=== PATIENT | female | born 1955 | race Caucasian/White ===

== ENCOUNTER 2019-07-22 12:06 | Inpatient (IN) ==
[2019-07-22 14:18] LABS: Basophils % 0.5 %; Hematocrit 38.6 % (35.3-44.9); Hemoglobin 11.3 g/dL (11.5-15.4); Lymphocytes % 15.3 %; Mean Corpuscular HGB Conc 29.3 g/dL (31.6-35.5); Mean Corpuscular Hemoglobin 30.6 pg (28.0-33.3); Mean Corpuscular Volume 104.6 fL (83.0-100.0); Mean Platelet Volume 9.7 fL (9.4-12.4); Monocytes # 0.6 K/mcL (0.0-1.3); Monocytes % 9.3 %; Neutrophils # 4.7 K/mcL (1.6-8.9); Platelet Count 166 K/mcL (140-400); Red Blood Count 3.69 M/mcL (3.82-4.97); Red Cell Distribution Width 14.6 % (11.5-14.5); Segmented Neutrophils % 72.9 %; White Blood Count 6.5 K/mcL (4.3-11.1)
[2019-07-22 14:31] LABS: Albumin 3.4 g/dL (3.5-5.7); Albumin/Globulin Ratio 1.2 (1.1-2.2); Bilirubin,Total 0.7 mg/dL (0.3-1.0); Calcium 8.5 mg/dL (8.6-10.3); Globulin 2.8 g/dL (2.4-3.5); Potassium 4.5 mEq/L (3.5-5.1); Total Protein 6.2 g/dL (6.4-8.9); Troponin I 0.03 ng/mL (< 0.04)
[2019-07-22] MEDS ORDERED: Furosemide 40 MG/4 ML VIAL IVP ONE (17:09)
[2019-07-22] MEDS ORDERED: Naloxone 0.4 MG/ML INJ IVP PRN (17:43)
[2019-07-22] MEDS ORDERED: Famotidine 20 MG TABLET PO SCH (18:00)
[2019-07-22] MEDS ORDERED: Nitroglycerin 0.4 MG TAB.SUBL SL PRN (18:00)
[2019-07-22] MEDS: carvediloL 6.25 MG TABLET PO SCH (19:37)
[2019-07-22] MEDS: *HR* Heparin 5,000 UNIT/ML VIAL SQ SCH (19:37)
[2019-07-22] MEDS: Insulin LISPRO 300 UNITS/3 ML VIAL SQ SCH (21:04)
[2019-07-22] MEDS: Insulin DETEMIR 100 UNIT/ML X5UNITS SQ SCH (21:14)
[2019-07-23] MEDS: *HR* Heparin 5,000 UNIT/ML VIAL SQ SCH ×2 (05:11→17:46)
[2019-07-23] MEDS: Acetaminophen 325 MG TABLET PO PRN ×2 (05:13→17:01)
[2019-07-23 05:52] LABS: Basophils % 0.5 %; Mean Platelet Volume 9.7 fL (9.4-12.4)
[2019-07-23 05:54] LABS: Hematocrit 37.7 % (35.3-44.9); Hemoglobin 10.9 g/dL (11.5-15.4); Immature Granulocytes % 1.3 % (0-4); Lymphocytes # 0.9 K/mcL (0.6-4.6); Lymphocytes % 13.9 %; Mean Corpuscular HGB Conc 28.9 g/dL (31.6-35.5); Mean Corpuscular Hemoglobin 29.8 pg (28.0-33.3); Monocytes # 0.7 K/mcL (0.0-1.3); Monocytes % 10.6 %; Platelet Count 165 K/mcL (140-400); Red Blood Count 3.66 M/mcL (3.82-4.97); Red Cell Distribution Width 14.6 % (11.5-14.5); Segmented Neutrophils % 73.7 %; White Blood Count 6.3 K/mcL (4.3-11.1)
[2019-07-23 06:01] LABS: Neutrophils # 4.6 K/mcL (1.6-8.9)
[2019-07-23 06:18] LABS: Calcium 8.4 mg/dL (8.6-10.3); Magnesium 2.3 mg/dL (1.6-2.6); Phosphorous 5.6 mg/dL (2.7-4.5); Potassium 5.6 mEq/L (3.5-5.1)
[2019-07-23 06:40] LABS: Platelet Estimate Normal (Normal)
[2019-07-23] MEDS ORDERED: Dextrose Gel 15 GM/37.5 ML TUBE PO PRN ×2 (07:06)
[2019-07-23] MEDS ORDERED: D5% in Water 1,000 ML IVC PRN (07:06)
[2019-07-23] MEDS ORDERED: *HR* Dextrose 50 % in Water (Syg) 50 ML SYRINGE IVP PRN (07:06)
[2019-07-23] MEDS: Insulin LISPRO 300 UNITS/3 ML VIAL SQ SCH ×4 (07:53→23:07)
[2019-07-23] MEDS: Aspirin Enteric Coated 81 MG Tablet PO SCH (07:59)
[2019-07-23] MEDS: carvediloL 6.25 MG TABLET PO SCH ×2 (07:59→17:01)
[2019-07-23] MEDS: Cholecalciferol (D-3) 1,000 UNIT (25MCG) TABLET PO SCH (07:59)
[2019-07-23] MEDS ORDERED: Insulin LISPRO 300 UNITS/3 ML VIAL SQ SCH (08:00)
[2019-07-23] MEDS ORDERED: Furosemide 40 MG/4 ML VIAL IVP ONE (12:11)
[2019-07-23] MEDS: Famotidine 20 MG TABLET PO SCH (17:01)
[2019-07-23] MEDS: Insulin DETEMIR 100 UNIT/ML X5UNITS SQ SCH (23:08)
[2019-07-24 06:08] LABS: Calcium 8.4 mg/dL (8.6-10.3); Potassium 5.4 mEq/L (3.5-5.1)
[2019-07-24] MEDS: *HR* Heparin 5,000 UNIT/ML VIAL SQ SCH ×2 (06:33→16:48)
[2019-07-24] MEDS: Insulin LISPRO 300 UNITS/3 ML VIAL SQ SCH ×3 (09:12→16:43)
[2019-07-24] MEDS: carvediloL 6.25 MG TABLET PO SCH ×2 (09:14→16:51)
[2019-07-24] MEDS: Aspirin Enteric Coated 81 MG Tablet PO SCH (09:14)
[2019-07-24] MEDS: Cholecalciferol (D-3) 1,000 UNIT (25MCG) TABLET PO SCH (09:14)
[2019-07-24] MEDS ORDERED: Albuterol 2.5 MG/3 ML NEBULIZER IH PRN (10:26)
[2019-07-24] MEDS ORDERED: Albumin 25% 25gram/100mL 25 GM/100 ML IV.SOLN IVPB ONE (11:28)
[2019-07-24] MEDS ORDERED: Furosemide 40 MG/4 ML VIAL IVP ONE (12:30)
[2019-07-24 13:11] LABS: Procalcitonin 0.18 ng/mL (0.00-0.15)
[2019-07-24] MEDS: Acetaminophen 325 MG TABLET PO PRN (16:47)
[2019-07-24] MEDS: Famotidine 20 MG TABLET PO SCH (16:47)
[2019-07-25] MEDS: Insulin LISPRO 300 UNITS/3 ML VIAL SQ SCH ×5 (00:12→22:27)
[2019-07-25] MEDS: GuaiFENesin/Dextromethorphan TABLET PO PRN (00:17)
[2019-07-25] MEDS: Insulin DETEMIR 100 UNIT/ML X5UNITS SQ SCH ×2 (00:17→22:31)
[2019-07-25] MEDS: *HR* Heparin 5,000 UNIT/ML VIAL SQ SCH ×2 (04:50→17:43)
[2019-07-25 05:21] LABS: Basophils % 0.5 %
[2019-07-25 05:22] LABS: Hematocrit 40.3 % (35.3-44.9); Hemoglobin 11.2 g/dL (11.5-15.4); Immature Granulocytes % 1.2 % (0-4); Lymphocytes # 0.9 K/mcL (0.6-4.6); Lymphocytes % 10.2 %; Mean Corpuscular HGB Conc 27.8 g/dL (31.6-35.5); Mean Corpuscular Hemoglobin 30.3 pg (28.0-33.3); Mean Corpuscular Volume 108.9 fL (83.0-100.0); Mean Platelet Volume 9.7 fL (9.4-12.4); Monocytes % 11.5 %; Neutrophils # 6.8 K/mcL (1.6-8.9); Platelet Count 131 K/mcL (140-400); Red Cell Distribution Width 14.6 % (11.5-14.5); Segmented Neutrophils % 76.6 %; White Blood Count 8.9 K/mcL (4.3-11.1)
[2019-07-25 05:34] LABS: Calcium 8.5 mg/dL (8.6-10.3); Potassium 5.2 mEq/L (3.5-5.1)
[2019-07-25 06:05] LABS: Hypochromasia Present (Not Present); Platelet Estimate Decreased (Normal)
[2019-07-25] MEDS: carvediloL 6.25 MG TABLET PO SCH ×2 (09:29→17:43)
[2019-07-25] MEDS: Acetaminophen 325 MG TABLET PO PRN ×2 (09:29→17:43)
[2019-07-25] MEDS: Aspirin Enteric Coated 81 MG Tablet PO SCH (09:29)
[2019-07-25] MEDS: Cholecalciferol (D-3) 1,000 UNIT (25MCG) TABLET PO SCH (09:29)
[2019-07-25] MEDS ORDERED: Albumin 25% 25gram/100mL 25 GM/100 ML IV.SOLN IVPB ONE (10:17)
[2019-07-25] MEDS ORDERED: Furosemide 40 MG/4 ML VIAL IVP ONE (10:17)
[2019-07-25] MEDS: Famotidine 20 MG TABLET PO SCH (17:43)
[2019-07-26 03:33] LABS: Hematocrit 36.4 % (35.3-44.9); Hemoglobin 10.5 g/dL (11.5-15.4); Mean Corpuscular HGB Conc 28.8 g/dL (31.6-35.5); Mean Corpuscular Hemoglobin 30.1 pg (28.0-33.3); Mean Corpuscular Volume 104.3 fL (83.0-100.0); Mean Platelet Volume 9.9 fL (9.4-12.4); Platelet Count 128 K/mcL (140-400); Red Blood Count 3.49 M/mcL (3.82-4.97); Red Cell Distribution Width 14.5 % (11.5-14.5); White Blood Count 8.2 K/mcL (4.3-11.1)
[2019-07-26 03:48] LABS: Calcium 8.7 mg/dL (8.6-10.3)
[2019-07-26] MEDS: *HR* Heparin 5,000 UNIT/ML VIAL SQ SCH ×2 (06:15→17:31)
[2019-07-26] MEDS: carvediloL 6.25 MG TABLET PO SCH ×2 (08:43→16:19)
[2019-07-26] MEDS: Insulin LISPRO 300 UNITS/3 ML VIAL SQ SCH ×4 (08:43→21:59)
[2019-07-26] MEDS: Cholecalciferol (D-3) 1,000 UNIT (25MCG) TABLET PO SCH (08:43)
[2019-07-26] MEDS: Aspirin Enteric Coated 81 MG Tablet PO SCH (08:44)
[2019-07-26] MEDS: Acetaminophen 325 MG TABLET PO PRN ×2 (08:52→22:00)
[2019-07-26] MEDS ORDERED: Albumin 25% 25gram/100mL 25 GM/100 ML IV.SOLN IVPB ONE (10:01)
[2019-07-26] MEDS ORDERED: Furosemide 40 MG/4 ML VIAL IVP ONE (10:01)
[2019-07-26] MEDS: Famotidine 20 MG TABLET PO SCH (16:19)
[2019-07-26] MEDS: GuaiFENesin/Dextromethorphan TABLET PO PRN (22:00)
[2019-07-26] MEDS: Insulin DETEMIR 100 UNIT/ML X5UNITS SQ SCH (22:00)
[2019-07-27] MEDS: *HR* Heparin 5,000 UNIT/ML VIAL SQ SCH ×2 (05:27→16:05)
[2019-07-27 06:05] LABS: Hematocrit 35.7 % (35.3-44.9); Hemoglobin 10.4 g/dL (11.5-15.4); Mean Corpuscular HGB Conc 29.1 g/dL (31.6-35.5); Mean Corpuscular Hemoglobin 30.1 pg (28.0-33.3); Mean Corpuscular Volume 103.5 fL (83.0-100.0); Mean Platelet Volume 10.1 fL (9.4-12.4); Platelet Count 124 K/mcL (140-400); Red Blood Count 3.45 M/mcL (3.82-4.97); Red Cell Distribution Width 14.4 % (11.5-14.5); White Blood Count 7.5 K/mcL (4.3-11.1)
[2019-07-27 06:42] LABS: Calcium 8.9 mg/dL (8.6-10.3); Potassium 5.1 mEq/L (3.5-5.1)
[2019-07-27 06:43] LABS: % Iron Saturation 18 % (15-50); Iron 33 mcg/dL (50-170); Transferrin 128 mg/dL (203-362)
[2019-07-27 06:56] LABS: Troponin I 0.03 ng/mL (< 0.04)
[2019-07-27] MEDS ORDERED: 0.9 % Sodium Chloride 250 ML IVC PRN ×2 (07:56→08:23)
[2019-07-27] MEDS ORDERED: 0.9 % Sodium Chloride 1,000 ML PRIME SCH (08:00)
[2019-07-27] MEDS: carvediloL 6.25 MG TABLET PO SCH ×2 (08:53→16:05)
[2019-07-27] MEDS: Insulin LISPRO 300 UNITS/3 ML VIAL SQ SCH ×4 (08:53→21:20)
[2019-07-27] MEDS: Aspirin Enteric Coated 81 MG Tablet PO SCH (08:54)
[2019-07-27] MEDS: Cholecalciferol (D-3) 1,000 UNIT (25MCG) TABLET PO SCH (08:54)
[2019-07-27 12:25] LABS: Hepatitis B Surface Antigen Nonreactive (Nonreactive)
[2019-07-27] MEDS: Famotidine 20 MG TABLET PO SCH (16:05)
[2019-07-27] MEDS: Insulin DETEMIR 100 UNIT/ML X5UNITS SQ SCH (21:20)
[2019-07-28] MEDS: Acetaminophen 325 MG TABLET PO PRN ×2 (00:45→11:50)
[2019-07-28 05:23] LABS: Calcium 8.7 mg/dL (8.6-10.3); Potassium 4.4 mEq/L (3.5-5.1)
[2019-07-28] MEDS: *HR* Heparin 5,000 UNIT/ML VIAL SQ SCH ×2 (05:57→16:20)
[2019-07-28] MEDS: Insulin LISPRO 300 UNITS/3 ML VIAL SQ SCH ×4 (07:46→20:04)
[2019-07-28] MEDS ORDERED: 0.9 % Sodium Chloride 250 ML IVC PRN (08:04)
[2019-07-28] MEDS: carvediloL 6.25 MG TABLET PO SCH ×2 (08:05→16:20)
[2019-07-28] MEDS: Benzonatate 100 MG CAPSULE PO PRN (11:45)
[2019-07-28] MEDS: Cholecalciferol (D-3) 1,000 UNIT (25MCG) TABLET PO SCH (15:27)
[2019-07-28] MEDS: Aspirin Enteric Coated 81 MG Tablet PO SCH (15:27)
[2019-07-28] MEDS: Famotidine 20 MG TABLET PO SCH (16:20)
[2019-07-28] MEDS: Insulin DETEMIR 100 UNIT/ML X5UNITS SQ SCH (20:05)
[2019-07-29 03:21] LABS: Hematocrit 35.2 % (35.3-44.9); Hemoglobin 10.2 g/dL (11.5-15.4); Mean Corpuscular Hemoglobin 30.3 pg (28.0-33.3); Mean Corpuscular Volume 104.5 fL (83.0-100.0); Mean Platelet Volume 9.8 fL (9.4-12.4); Platelet Count 120 K/mcL (140-400); Red Blood Count 3.37 M/mcL (3.82-4.97); Red Cell Distribution Width 14.4 % (11.5-14.5)
[2019-07-29 03:31] LABS: Calcium 8.9 mg/dL (8.6-10.3); Potassium 4.3 mEq/L (3.5-5.1)
[2019-07-29] MEDS: *HR* Heparin 5,000 UNIT/ML VIAL SQ SCH ×2 (05:07→18:17)
[2019-07-29] MEDS ORDERED: 0.9 % Sodium Chloride 250 ML IVC PRN (07:53)
[2019-07-29] MEDS: Aspirin Enteric Coated 81 MG Tablet PO SCH (08:45)
[2019-07-29] MEDS: Insulin LISPRO 300 UNITS/3 ML VIAL SQ SCH ×4 (08:46→20:27)
[2019-07-29] MEDS: Cholecalciferol (D-3) 1,000 UNIT (25MCG) TABLET PO SCH (08:46)
[2019-07-29] MEDS: carvediloL 6.25 MG TABLET PO SCH ×2 (08:46→16:04)
[2019-07-29] MEDS: Benzonatate 100 MG CAPSULE PO PRN ×2 (10:42→16:04)
[2019-07-29] MEDS: Acetaminophen 325 MG TABLET PO PRN (10:42)
[2019-07-29] MEDS: Famotidine 20 MG TABLET PO SCH (16:03)
[2019-07-29] MEDS: GuaiFENesin/Dextromethorphan TABLET PO PRN (16:04)
[2019-07-29] MEDS: Nystatin POWDER 30 GM BOTTLE TP SCH (20:27)
[2019-07-29] MEDS: Insulin DETEMIR 100 UNIT/ML X5UNITS SQ SCH (20:29)
[2019-07-30 05:07] LABS: Basophils % 0.4 %; Hematocrit 34.8 % (35.3-44.9); Hemoglobin 10.3 g/dL (11.5-15.4); Immature Granulocytes % 1.9 % (0-4); Lymphocytes # 0.9 K/mcL (0.6-4.6); Lymphocytes % 11.6 %; Mean Corpuscular HGB Conc 29.6 g/dL (31.6-35.5); Mean Corpuscular Hemoglobin 29.8 pg (28.0-33.3); Mean Corpuscular Volume 100.6 fL (83.0-100.0); Mean Platelet Volume 10.1 fL (9.4-12.4); Monocytes # 0.9 K/mcL (0.0-1.3); Monocytes % 12.4 %; Neutrophils # 5.5 K/mcL (1.6-8.9); Platelet Count 129 K/mcL (140-400); Red Blood Count 3.46 M/mcL (3.82-4.97); Red Cell Distribution Width 14.3 % (11.5-14.5); Segmented Neutrophils % 73.7 %; White Blood Count 7.5 K/mcL (4.3-11.1)
[2019-07-30] MEDS: *HR* Heparin 5,000 UNIT/ML VIAL SQ SCH ×2 (05:09→17:10)
[2019-07-30 05:23] LABS: Calcium 8.4 mg/dL (8.6-10.3); Potassium 4.2 mEq/L (3.5-5.1)
[2019-07-30] MEDS: Insulin LISPRO 300 UNITS/3 ML VIAL SQ SCH ×4 (07:57→20:21)
[2019-07-30] MEDS: Acetaminophen 325 MG TABLET PO PRN (08:39)
[2019-07-30] MEDS: carvediloL 6.25 MG TABLET PO SCH ×2 (08:42→17:09)
[2019-07-30] MEDS: Benzonatate 100 MG CAPSULE PO PRN (08:42)
[2019-07-30] MEDS: Cholecalciferol (D-3) 1,000 UNIT (25MCG) TABLET PO SCH (08:45)
[2019-07-30] MEDS: GuaiFENesin/Dextromethorphan TABLET PO PRN (08:45)
[2019-07-30] MEDS: Aspirin Enteric Coated 81 MG Tablet PO SCH (08:45)
[2019-07-30] MEDS: Nystatin POWDER 30 GM BOTTLE TP SCH ×2 (11:36→22:20)
[2019-07-30] MEDS: Famotidine 20 MG TABLET PO SCH (17:09)
[2019-07-30] MEDS: Insulin DETEMIR 100 UNIT/ML X5UNITS SQ SCH (20:21)
[2019-07-31 04:44] LABS: Calcium 8.6 mg/dL (8.6-10.3); Potassium 4.1 mEq/L (3.5-5.1)
[2019-07-31] MEDS: *HR* Heparin 5,000 UNIT/ML VIAL SQ SCH ×2 (05:39→16:55)
[2019-07-31] MEDS ORDERED: 0.9 % Sodium Chloride 250 ML IVC PRN (08:03)
[2019-07-31] MEDS: Benzonatate 100 MG CAPSULE PO PRN ×2 (11:00→16:52)
[2019-07-31] MEDS: carvediloL 6.25 MG TABLET PO SCH ×2 (11:00→16:51)
[2019-07-31] MEDS: Cholecalciferol (D-3) 1,000 UNIT (25MCG) TABLET PO SCH (11:00)
[2019-07-31] MEDS: Aspirin Enteric Coated 81 MG Tablet PO SCH (11:01)
[2019-07-31] MEDS: Nystatin POWDER 30 GM BOTTLE TP SCH ×2 (11:01→19:52)
[2019-07-31] MEDS: Insulin LISPRO 300 UNITS/3 ML VIAL SQ SCH ×4 (11:01→19:51)
[2019-07-31] MEDS ORDERED: *HR* Heparin 10,000 UNIT/10 ML VIAL IV PRN (12:43)
[2019-07-31] MEDS: Famotidine 20 MG TABLET PO SCH (16:51)
[2019-07-31] MEDS: Insulin DETEMIR 100 UNIT/ML X5UNITS SQ SCH (19:51)
[2019-07-31] MEDS: Acetaminophen 325 MG TABLET PO PRN (21:07)
[2019-08-01] MEDS: *HR* Heparin 5,000 UNIT/ML VIAL SQ SCH ×2 (05:48→17:13)
[2019-08-01 06:27] LABS: Calcium 8.4 mg/dL (8.6-10.3); Potassium 3.9 mEq/L (3.5-5.1)
[2019-08-01] MEDS: Insulin LISPRO 300 UNITS/3 ML VIAL SQ SCH ×4 (07:46→20:59)
[2019-08-01] MEDS: Cholecalciferol (D-3) 1,000 UNIT (25MCG) TABLET PO SCH (09:34)
[2019-08-01] MEDS: Benzonatate 100 MG CAPSULE PO PRN (09:34)
[2019-08-01] MEDS: carvediloL 6.25 MG TABLET PO SCH ×2 (09:34→17:12)
[2019-08-01] MEDS: Aspirin Enteric Coated 81 MG Tablet PO SCH (09:34)
[2019-08-01] MEDS: Nystatin POWDER 30 GM BOTTLE TP SCH ×2 (09:35→20:58)
[2019-08-01] MEDS: Famotidine 20 MG TABLET PO SCH (17:12)
[2019-08-01] MEDS: Insulin DETEMIR 100 UNIT/ML X5UNITS SQ SCH (20:59)
[2019-08-02] MEDS: *HR* Heparin 5,000 UNIT/ML VIAL SQ SCH ×2 (05:23→18:20)
[2019-08-02 08:10] LABS: Calcium 8.6 mg/dL (8.6-10.3)
[2019-08-02] MEDS: Aspirin Enteric Coated 81 MG Tablet PO SCH (08:49)
[2019-08-02] MEDS: Cholecalciferol (D-3) 1,000 UNIT (25MCG) TABLET PO SCH (08:49)
[2019-08-02] MEDS: carvediloL 6.25 MG TABLET PO SCH ×2 (08:49→18:20)
[2019-08-02] MEDS: Benzonatate 100 MG CAPSULE PO PRN (08:49)
[2019-08-02] MEDS: Nystatin POWDER 30 GM BOTTLE TP SCH ×2 (08:49→22:01)
[2019-08-02] MEDS: Insulin LISPRO 300 UNITS/3 ML VIAL SQ SCH ×3 (13:04→22:00)
[2019-08-02] MEDS: Famotidine 20 MG TABLET PO SCH (18:20)
[2019-08-02] MEDS: Insulin DETEMIR 100 UNIT/ML X5UNITS SQ SCH (22:09)
[2019-08-02] MEDS: Acetaminophen 325 MG TABLET PO PRN (23:39)
[2019-08-03 01:31] LABS: Hematocrit 34.2 % (35.3-44.9); Immature Granulocytes % 4.8 % (0-4)
[2019-08-03 01:32] LABS: Basophils # 0.1 K/mcL (0.0-0.2); Basophils % 0.8 %; Hemoglobin 10.2 g/dL (11.5-15.4); Lymphocytes % 14.5 %; Mean Corpuscular HGB Conc 29.8 g/dL (31.6-35.5); Mean Corpuscular Hemoglobin 29.9 pg (28.0-33.3); Mean Corpuscular Volume 100.3 fL (83.0-100.0); Mean Platelet Volume 9.8 fL (9.4-12.4); Monocytes # 0.8 K/mcL (0.0-1.3); Monocytes % 12.3 %; Neutrophils # 4.5 K/mcL (1.6-8.9); Platelet Count 156 K/mcL (140-400); Red Blood Count 3.41 M/mcL (3.82-4.97); Red Cell Distribution Width 14.4 % (11.5-14.5); Segmented Neutrophils % 67.6 %; White Blood Count 6.6 K/mcL (4.3-11.1)
[2019-08-03 01:52] LABS: Calcium 8.6 mg/dL (8.6-10.3); Potassium 4.1 mEq/L (3.5-5.1)
[2019-08-03 02:03] LABS: Hypochromasia Present (Not Present); Platelet Estimate Normal (Normal)
[2019-08-03] MEDS: *HR* Heparin 5,000 UNIT/ML VIAL SQ SCH ×2 (06:45→17:15)
[2019-08-03] MEDS: Insulin LISPRO 300 UNITS/3 ML VIAL SQ SCH ×4 (09:04→21:45)
[2019-08-03] MEDS: Cholecalciferol (D-3) 1,000 UNIT (25MCG) TABLET PO SCH (09:07)
[2019-08-03] MEDS: Aspirin Enteric Coated 81 MG Tablet PO SCH (09:07)
[2019-08-03] MEDS: Nystatin POWDER 30 GM BOTTLE TP SCH ×2 (09:07→21:49)
[2019-08-03] MEDS: carvediloL 6.25 MG TABLET PO SCH ×2 (09:15→17:15)
[2019-08-03] MEDS: Famotidine 20 MG TABLET PO SCH (17:15)
[2019-08-03] MEDS: Insulin DETEMIR 100 UNIT/ML X5UNITS SQ SCH (21:49)
[2019-08-04] MEDS: *HR* Heparin 5,000 UNIT/ML VIAL SQ SCH ×2 (06:14→16:44)
[2019-08-04 06:28] LABS: Red Cell Distribution Width 14.2 % (11.5-14.5)
[2019-08-04 06:29] LABS: Basophils # 0.1 K/mcL (0.0-0.2); Basophils % 0.5 %; Hematocrit 35.8 % (35.3-44.9); Hemoglobin 10.3 g/dL (11.5-15.4); Immature Granulocytes % 3.1 % (0-4); Lymphocytes # 0.9 K/mcL (0.6-4.6); Lymphocytes % 9.5 %; Mean Corpuscular HGB Conc 28.8 g/dL (31.6-35.5); Mean Corpuscular Hemoglobin 29.7 pg (28.0-33.3); Mean Corpuscular Volume 103.2 fL (83.0-100.0); Mean Platelet Volume 10.1 fL (9.4-12.4); Monocytes % 11.2 %; Platelet Count 174 K/mcL (140-400); Red Blood Count 3.47 M/mcL (3.82-4.97); Segmented Neutrophils % 75.7 %; White Blood Count 9.3 K/mcL (4.3-11.1)
[2019-08-04 06:43] LABS: Calcium 8.9 mg/dL (8.6-10.3); Potassium 4.3 mEq/L (3.5-5.1)
[2019-08-04 07:01] LABS: Hypochromasia Present (Not Present); Platelet Estimate Normal (Normal)
[2019-08-04] MEDS: Insulin LISPRO 300 UNITS/3 ML VIAL SQ SCH ×4 (08:04→20:58)
[2019-08-04] MEDS: Furosemide 40 MG TABLET PO SCH (09:19)
[2019-08-04] MEDS: carvediloL 6.25 MG TABLET PO SCH ×2 (09:19→16:43)
[2019-08-04] MEDS: Aspirin Enteric Coated 81 MG Tablet PO SCH (09:19)
[2019-08-04] MEDS: Cholecalciferol (D-3) 1,000 UNIT (25MCG) TABLET PO SCH (09:19)
[2019-08-04] MEDS: Nystatin POWDER 30 GM BOTTLE TP SCH ×2 (14:02→20:59)
[2019-08-04] MEDS: Famotidine 20 MG TABLET PO SCH (16:43)
[2019-08-04] MEDS: Insulin DETEMIR 100 UNIT/ML X5UNITS SQ SCH (20:58)
[2019-08-05 05:30] LABS: Basophils % 0.5 %; Hematocrit 35.5 % (35.3-44.9); Hemoglobin 10.4 g/dL (11.5-15.4); Immature Granulocytes % 3.6 % (0-4); Lymphocytes # 0.9 K/mcL (0.6-4.6); Lymphocytes % 10.7 %; Mean Corpuscular HGB Conc 29.3 g/dL (31.6-35.5); Mean Corpuscular Volume 102.3 fL (83.0-100.0); Mean Platelet Volume 9.8 fL (9.4-12.4); Monocytes % 12.1 %; Neutrophils # 6.3 K/mcL (1.6-8.9); Platelet Count 176 K/mcL (140-400); Red Blood Count 3.47 M/mcL (3.82-4.97); Red Cell Distribution Width 14.3 % (11.5-14.5); Segmented Neutrophils % 73.1 %; White Blood Count 8.5 K/mcL (4.3-11.1)
[2019-08-05 05:50] LABS: Calcium 9.2 mg/dL (8.6-10.3); Potassium 4.1 mEq/L (3.5-5.1)
[2019-08-05] MEDS: *HR* Heparin 5,000 UNIT/ML VIAL SQ SCH ×2 (06:43→17:05)
[2019-08-05] MEDS: Cholecalciferol (D-3) 1,000 UNIT (25MCG) TABLET PO SCH (09:36)
[2019-08-05] MEDS: Aspirin Enteric Coated 81 MG Tablet PO SCH (09:36)
[2019-08-05] MEDS: carvediloL 6.25 MG TABLET PO SCH ×2 (09:36→17:04)
[2019-08-05] MEDS: Furosemide 40 MG TABLET PO SCH (09:36)
[2019-08-05] MEDS: Nystatin POWDER 30 GM BOTTLE TP SCH ×2 (09:37→20:16)
[2019-08-05] MEDS: Insulin LISPRO 300 UNITS/3 ML VIAL SQ SCH ×4 (09:37→20:10)
[2019-08-05] MEDS: Benzonatate 100 MG CAPSULE PO PRN ×2 (09:42→20:21)
[2019-08-05 13:38] LABS: Total Volume 24 Hour,Urine 0.84 Liters (0.60-1.60)
[2019-08-05 13:56] LABS: Sodium, Urine 43.6 mEq/L
[2019-08-05] MEDS: Famotidine 20 MG TABLET PO SCH (17:05)
[2019-08-05] MEDS: Insulin DETEMIR 100 UNIT/ML X5UNITS SQ SCH (20:15)
[2019-08-06 04:00] LABS: Basophils % 0.6 %; Lymphocytes % 11.1 %; Red Cell Distribution Width 14.2 % (11.5-14.5)
[2019-08-06 04:02] LABS: Basophils # 0.1 K/mcL (0.0-0.2); Hematocrit 35.5 % (35.3-44.9); Hemoglobin 10.3 g/dL (11.5-15.4); Immature Granulocytes % 3.1 % (0-4); Lymphocytes # 0.9 K/mcL (0.6-4.6); Mean Corpuscular Hemoglobin 29.9 pg (28.0-33.3); Mean Corpuscular Volume 103.2 fL (83.0-100.0); Monocytes # 1.1 K/mcL (0.0-1.3); Monocytes % 12.6 %; Platelet Count 188 K/mcL (140-400); Red Blood Count 3.44 M/mcL (3.82-4.97); Segmented Neutrophils % 72.6 %; White Blood Count 8.3 K/mcL (4.3-11.1)
[2019-08-06 04:19] LABS: Calcium 9.5 mg/dL (8.6-10.3); Potassium 4.3 mEq/L (3.5-5.1)
[2019-08-06 04:55] LABS: Hypochromasia Present (Not Present); Platelet Estimate Normal (Normal)
[2019-08-06] MEDS: *HR* Heparin 5,000 UNIT/ML VIAL SQ SCH (05:39)
[2019-08-06] MEDS: Furosemide 40 MG TABLET PO SCH (08:10)
[2019-08-06] MEDS: Aspirin Enteric Coated 81 MG Tablet PO SCH (08:10)
[2019-08-06] MEDS: carvediloL 6.25 MG TABLET PO SCH (08:10)
[2019-08-06] MEDS: Cholecalciferol (D-3) 1,000 UNIT (25MCG) TABLET PO SCH (08:10)
[2019-08-06] MEDS: Benzonatate 100 MG CAPSULE PO PRN (08:10)
[2019-08-06] MEDS: Nystatin POWDER 30 GM BOTTLE TP SCH (08:11)
[2019-08-06] MEDS: Insulin LISPRO 300 UNITS/3 ML VIAL SQ SCH ×2 (08:11→12:00)
[2019-08-06] MEDS: Acetaminophen 325 MG TABLET PO PRN (10:32)
[2019-08-06 10:49] VITALS: BP 111/56
== END 2019-08-06 13:07 | DRG 291 ==
LOC: 2ANU 12:06 → EMEROOARM 12:06 → SUATTDRO 17:31 → 2ANU 18:38 → SUATTDRO 07-24 14:01
PROVIDERS: ADMIT Student in an Organized Health Care Education/Training Program; ATTEND Family Medicine

== ENCOUNTER 2019-09-04 12:39 | Inpatient (IN) ==
[2019-09-04] MEDS ORDERED: Naloxone 0.4 MG/ML INJ IVP PRN (15:14)
[2019-09-04] MEDS ORDERED: D5% in Water 1,000 ML IVC PRN (15:18)
[2019-09-04] MEDS ORDERED: *HR* Dextrose 50 % in Water (Syg) 50 ML SYRINGE IVP PRN (15:18)
[2019-09-04] MEDS ORDERED: Dextrose Gel 15 GM/37.5 ML TUBE PO PRN ×2 (15:18)
[2019-09-04 15:23] LABS: ABG Base Excess 0 mEq/L (-2 to 3); ABG HCO3 31 mEq/L (21-27); ABG Oxygen Saturation 98 % (95-98); ABG PCO2 83 mmHg (35-45); ABG PH 7.18 pH Units (7.32-7.45); ABG PO2 137 mmHg (85-104); ABG TCO2 34 mEq/L (20-26)
[2019-09-04] MEDS ORDERED: Artificial Tears SOLN 15 ML BOTTLE BOTH EYES PRN (15:30)
[2019-09-04] MEDS ORDERED: *HR* Metoprolol 5 MG/5 ML VIAL IVP ONE (15:48)
[2019-09-04] MEDS: *HR* Metoprolol 5 MG/5 ML VIAL IVP SCH ×2 (15:55→16:08)
[2019-09-04] MEDS ORDERED: 0.9 % Sodium Chloride 250 ML IVC PRN ×2 (16:03→16:06)
[2019-09-04] MEDS: Artificial Tears SOLN 15 ML BOTTLE BOTH EYES SCH ×2 (16:05→22:03)
[2019-09-04] MEDS ORDERED: 0.9 % Sodium Chloride 1,000 ML PRIME SCH (16:15)
[2019-09-04] MEDS: Insulin LISPRO 300 UNITS/3 ML VIAL SQ SCH (16:28)
[2019-09-04] MEDS ORDERED: Vancomycin 1 EACH in 0.9 % Sodium Chloride 250 ML IVPB SCH (17:00)
[2019-09-04] MEDS ORDERED: levoFLOXacin 750 MG/150 ML 750 MG/150 ML BAG IVPB SCH (17:00)
[2019-09-04 17:16] LABS: ABG Base Excess 2 mEq/L (-2 to 3); ABG HCO3 34 mEq/L (21-27); ABG Oxygen Saturation 99 % (95-98); ABG PCO2 88 mmHg (35-45); ABG PH 7.19 pH Units (7.32-7.45); ABG PO2 150 mmHg (85-104); ABG TCO2 36 mEq/L (20-26); Blood Gas Modality NIV; Blood Gas VT 500 cc
[2019-09-04 17:24] LABS: Nucleated Red Blood Cells 0.4 /100 WBC (0); Prothrombin Time 11.8 Seconds (9.4-12.1); Red Cell Distribution Width 14.6 % (11.5-14.5)
[2019-09-04 17:26] LABS: Basophils # 0.1 K/mcL (0.0-0.2); Basophils % 0.7 %; Hematocrit 40.3 % (35.3-44.9); Hemoglobin 11.4 g/dL (11.5-15.4); Immature Granulocytes % 2.4 % (0-4); Lymphocytes # 0.6 K/mcL (0.6-4.6); Lymphocytes % 4.3 %; Mean Corpuscular HGB Conc 28.3 g/dL (31.6-35.5); Mean Corpuscular Hemoglobin 29.4 pg (28.0-33.3); Mean Corpuscular Volume 103.9 fL (83.0-100.0); Mean Platelet Volume 9.4 fL (9.4-12.4); Monocytes # 1.1 K/mcL (0.0-1.3); Neutrophils # 11.4 K/mcL (1.6-8.9); Platelet Count 193 K/mcL (140-400); Red Blood Count 3.88 M/mcL (3.82-4.97); Segmented Neutrophils % 84.6 %; White Blood Count 13.5 K/mcL (4.3-11.1)
[2019-09-04 17:27] LABS: Activated Partial Thrombo Time 34.1 Seconds (26.0-36.0)
[2019-09-04 17:30] LABS: Hypochromasia Present (Not Present)
[2019-09-04 17:32] LABS: Adenovirus Not Detected (Not Detect)
[2019-09-04 17:33] LABS: Coronavirus 229E Not Detected (Not Detect); Coronavirus HKU1 Not Detected (Not Detect); Coronavirus NL63 Not Detected (Not Detect); Coronavirus OC43 Not Detected (Not Detect); Human Metapneumovirus Not Detected (Not Detect); Human Rhinovirus/Enterovirus Not Detected (Not Detect)
[2019-09-04 17:34] LABS: Influenza A Subtype 2009 H1 Not Detected (Not Detect)
[2019-09-04 17:35] LABS: Bordetella Pertussis Not Detected (Not Detect); Chlamydophila pneumoniae Not Detected (Not Detect); Influenza B Not Detected (Not Detect); Mycoplasma pneumoniae Not Detected (Not Detect); Parainfluenza Virus 1 Not Detected (Not Detect); Parainfluenza Virus 2 Not Detected (Not Detect); Parainfluenza Virus 3 Not Detected (Not Detect); Parainfluenza Virus 4 Not Detected (Not Detect); Respiratory Syncytial Virus Not Detected (Not Detect)
[2019-09-04 17:37] LABS: Albumin 3.2 g/dL (3.5-5.7); Bilirubin,Direct 0.2 mg/dL (0.0-0.2); Bilirubin,Indirect 0.3 mg/dL (0.0-1.0); Bilirubin,Total 0.5 mg/dL (0.3-1.0); Globulin 3.1 g/dL (2.4-3.5); Total Protein 6.3 g/dL (6.4-8.9)
[2019-09-04 17:38] LABS: Calcium 8.8 mg/dL (8.6-10.3)
[2019-09-04 17:43] LABS: Troponin I 0.04 ng/mL (< 0.04)
[2019-09-04] MEDS: Pantoprazole 40 MG VIAL IVP SCH (17:55)
[2019-09-04 18:00] LABS: Magnesium 2.5 mg/dL (1.6-2.6); Phosphorous 6.3 mg/dL (2.7-4.5)
[2019-09-04] MEDS ORDERED: Azithromycin 500 MG in 0.9 % Sodium Chloride 250 ML IVPB SCH (18:00)
[2019-09-04 21:01] LABS: Hepatitis B Surface Antibody < 3.10 mIU/mL
[2019-09-04 21:10] LABS: Hepatitis B Surface Antigen Nonreactive (Nonreactive)
[2019-09-04] MEDS: Chlorhexidine Rinse 15 ML MOUTHWASH MM SCH (22:01)
[2019-09-04] MEDS: *HR* Heparin 5,000 UNIT/ML VIAL SQ SCH (22:03)
[2019-09-04 22:08] LABS: ABG Base Excess 2 mEq/L (-2 to 3); ABG HCO3 32 mEq/L (21-27); ABG Oxygen Saturation 99 % (95-98); ABG PCO2 74 mmHg (35-45); ABG PH 7.25 pH Units (7.32-7.45); ABG PO2 168 mmHg (85-104); ABG TCO2 35 mEq/L (20-26); Blood Gas Modality BiLevel
[2019-09-05] MEDS: Artificial Tears SOLN 15 ML BOTTLE BOTH EYES SCH ×7 (00:14→23:34)
[2019-09-05] MEDS: Insulin LISPRO 300 UNITS/3 ML VIAL SQ SCH ×5 (00:14→23:34)
[2019-09-05 04:36] LABS: ABG Base Excess 2 mEq/L (-2 to 3); ABG HCO3 30 mEq/L (21-27); ABG Oxygen Saturation 92 % (95-98); ABG PCO2 60 mmHg (35-45); ABG PH 7.31 pH Units (7.32-7.45); ABG PO2 73 mmHg (85-104); ABG TCO2 32 mEq/L (20-26); Blood Gas Modality avaps; Blood Gas Pressure Support 15 cm H2O; Blood Gas VT 500 cc
[2019-09-05] MEDS: *HR* Heparin 5,000 UNIT/ML VIAL SQ SCH ×3 (05:51→21:34)
[2019-09-05] MEDS: Pantoprazole 40 MG VIAL IVP SCH ×2 (05:52→18:26)
[2019-09-05 05:53] LABS: Basophils # 0.1 K/mcL (0.0-0.2); Basophils % 0.9 %; Hematocrit 38.1 % (35.3-44.9); Hemoglobin 11.2 g/dL (11.5-15.4); Immature Granulocytes % 3.2 % (0-4); Lymphocytes # 0.7 K/mcL (0.6-4.6); Mean Corpuscular HGB Conc 29.4 g/dL (31.6-35.5); Mean Corpuscular Hemoglobin 30.7 pg (28.0-33.3); Mean Corpuscular Volume 104.4 fL (83.0-100.0); Mean Platelet Volume 9.6 fL (9.4-12.4); Monocytes % 8.9 %; Nucleated Red Blood Cells 0.5 /100 WBC (0); Platelet Count 156 K/mcL (140-400); Red Blood Count 3.65 M/mcL (3.82-4.97); Red Cell Distribution Width 14.6 % (11.5-14.5); White Blood Count 11.2 K/mcL (4.3-11.1)
[2019-09-05 06:13] LABS: Calcium 8.6 mg/dL (8.6-10.3); Potassium 4.1 mEq/L (3.5-5.1)
[2019-09-05] MEDS: Chlorhexidine Rinse 15 ML MOUTHWASH MM SCH ×2 (07:56→21:34)
[2019-09-05] MEDS ORDERED: 0.9 % Sodium Chloride 250 ML IVC PRN (12:03)
[2019-09-05] MEDS ORDERED: *HR* Metoprolol 5 MG/5 ML VIAL IVP ONE ×5 (14:47→15:11)
[2019-09-05] MEDS: DilTIAZem 50 MG in 0.9 % Sodium Chloride 40 ML IVC SCH ×2 (16:16→23:34)
[2019-09-05] MEDS: Dexmedetomidine HCl 400 MCG/100 ML MLS IVC SCH (16:51)
[2019-09-05 17:59] LABS: VBG Ionized Calcium 0.91 mmol/L (1.15-1.35)
[2019-09-05 18:24] LABS: Calcium 8.8 mg/dL (8.6-10.3); Magnesium 2.1 mg/dL (1.6-2.6); Phosphorous 3.3 mg/dL (2.7-4.5); Potassium 4.2 mEq/L (3.5-5.1)
[2019-09-05 18:38] LABS: ABG Base Excess 0 mEq/L (-2 to 3); ABG HCO3 26 mEq/L (21-27); ABG Oxygen Saturation 97 % (95-98); ABG PCO2 43 mmHg (35-45); ABG PH 7.39 pH Units (7.32-7.45); ABG PO2 96 mmHg (85-104); ABG TCO2 27 mEq/L (20-26); Blood Gas VT 500 cc
[2019-09-06] MEDS: Dexmedetomidine HCl 400 MCG/100 ML MLS IVC SCH ×4 (01:20→22:18)
[2019-09-06] MEDS: DilTIAZem 50 MG in 0.9 % Sodium Chloride 40 ML IVC SCH ×3 (05:11→21:17)
[2019-09-06] MEDS: Artificial Tears SOLN 15 ML BOTTLE BOTH EYES SCH ×6 (05:12→23:20)
[2019-09-06] MEDS: *HR* Heparin 5,000 UNIT/ML VIAL SQ SCH ×3 (05:12→21:15)
[2019-09-06] MEDS: Pantoprazole 40 MG VIAL IVP SCH ×2 (05:12→17:19)
[2019-09-06] MEDS: Insulin LISPRO 300 UNITS/3 ML VIAL SQ SCH ×4 (05:16→23:23)
[2019-09-06 06:08] LABS: Basophils # 0.1 K/mcL (0.0-0.2); Basophils % 0.9 %; Hematocrit 37.5 % (35.3-44.9); Hemoglobin 11.2 g/dL (11.5-15.4); Immature Granulocytes % 5.2 % (0-4); Lymphocytes # 0.9 K/mcL (0.6-4.6); Mean Corpuscular HGB Conc 29.9 g/dL (31.6-35.5); Mean Corpuscular Hemoglobin 30.2 pg (28.0-33.3); Mean Corpuscular Volume 101.1 fL (83.0-100.0); Monocytes # 0.9 K/mcL (0.0-1.3); Monocytes % 8.3 %; Nucleated Red Blood Cells 0.3 /100 WBC (0); Platelet Count 166 K/mcL (140-400); Red Blood Count 3.71 M/mcL (3.82-4.97); Red Cell Distribution Width 14.5 % (11.5-14.5); Segmented Neutrophils % 77.6 %; White Blood Count 11.3 K/mcL (4.3-11.1)
[2019-09-06 06:12] LABS: Neutrophils # 8.8 K/mcL (1.6-8.9)
[2019-09-06 06:23] LABS: Calcium 8.8 mg/dL (8.6-10.3); Potassium 4.8 mEq/L (3.5-5.1)
[2019-09-06 06:28] LABS: Platelet Estimate Decreased (Normal)
[2019-09-06] MEDS ORDERED: Aminoglycoside Consult 1 EACH MC ONE (08:22)
[2019-09-06] MEDS: Chlorhexidine Rinse 15 ML MOUTHWASH MM SCH ×2 (09:40→21:18)
[2019-09-06 13:45] LABS: ABG Base Excess 1 mEq/L (-2 to 3); ABG HCO3 28 mEq/L (21-27); ABG Oxygen Saturation 93 % (95-98); ABG PCO2 49 mmHg (35-45); ABG PH 7.35 pH Units (7.32-7.45); ABG PO2 72 mmHg (85-104); ABG TCO2 29 mEq/L (20-26)
[2019-09-06] MEDS ORDERED: levoFLOXacin 500 MG/100 ML 500 MG/100 ML BAG IVPB SCH (17:00)
[2019-09-07] MEDS: Dexmedetomidine HCl 400 MCG/100 ML MLS IVC SCH (00:20)
[2019-09-07] MEDS: DilTIAZem 50 MG in 0.9 % Sodium Chloride 40 ML IVC SCH ×5 (03:45→22:38)
[2019-09-07] MEDS: Artificial Tears SOLN 15 ML BOTTLE BOTH EYES SCH ×5 (04:04→20:00)
[2019-09-07 05:18] LABS: Hematocrit 35.8 % (35.3-44.9); Mean Corpuscular HGB Conc 30.7 g/dL (31.6-35.5); Mean Corpuscular Hemoglobin 30.2 pg (28.0-33.3); Mean Corpuscular Volume 98.4 fL (83.0-100.0); Mean Platelet Volume 9.9 fL (9.4-12.4); Nucleated Red Blood Cells 0.4 /100 WBC (0); Platelet Count 175 K/mcL (140-400); Red Blood Count 3.64 M/mcL (3.82-4.97); Red Cell Distribution Width 14.5 % (11.5-14.5); White Blood Count 10.3 K/mcL (4.3-11.1)
[2019-09-07] MEDS: *HR* Heparin 5,000 UNIT/ML VIAL SQ SCH ×3 (05:27→20:20)
[2019-09-07] MEDS: Pantoprazole 40 MG VIAL IVP SCH (05:27)
[2019-09-07] MEDS: Insulin LISPRO 300 UNITS/3 ML VIAL SQ SCH ×3 (05:31→18:11)
[2019-09-07 05:39] LABS: Calcium 8.7 mg/dL (8.6-10.3); Potassium 4.6 mEq/L (3.5-5.1)
[2019-09-07 05:51] LABS: Lymphocytes # 1.7 K/mcL (0.6-4.6); Monocytes # 0.8 K/mcL (0.0-1.3); Neutrophils # 7.4 K/mcL (1.6-8.9); Platelet Estimate Normal (Normal); Reactive Lymphocytes Present (Not Present); Toxic Granulation Present (Not Present)
[2019-09-07] MEDS ORDERED: 0.9 % Sodium Chloride 250 ML IVC PRN ×2 (07:17→15:44)
[2019-09-07] MEDS ORDERED: 0.9 % Sodium Chloride 1,000 ML PRIME SCH ×2 (07:30→15:44)
[2019-09-07] MEDS: Chlorhexidine Rinse 15 ML MOUTHWASH MM SCH ×2 (09:08→20:21)
[2019-09-07] MEDS ORDERED: D5% in Water 1,000 ML IVC PRN (15:44)
[2019-09-07] MEDS ORDERED: *HR* Dextrose 50 % in Water (Syg) 50 ML SYRINGE IVP PRN (15:44)
[2019-09-07] MEDS ORDERED: Naloxone 0.4 MG/ML INJ IVP PRN (15:44)
[2019-09-07] MEDS ORDERED: Dexmedetomidine HCl 400 MCG/100 ML MLS IVC SCH (15:44)
[2019-09-07] MEDS ORDERED: Dextrose Gel 15 GM/37.5 ML TUBE PO PRN ×2 (15:44)
[2019-09-07 16:41] LABS: Appearance of Pleural Fl Cloudy (Clear)
[2019-09-07 16:49] LABS: Amylase,Pleural Fluid 24 Units/L (No Ref Range); Glucose,Pleural Fluid 54 mg/dL (No Ref Range); LDH,Pleural Fluid > 1200 Units/L (No Ref Range); Total Protein,Pleural Fluid 3.4 g/dL
[2019-09-07] MEDS ORDERED: DiphenhydraMINE CREAM 28.4 GM TUBE TP PRN (18:19)
[2019-09-07] MEDS: Artificial Tears SOLN 15 ML BOTTLE BOTH EYES PRN (20:23)
[2019-09-07] MEDS ORDERED: *HR* LORazepam 1 MG TABLET PO ONE (20:59)
[2019-09-08] MEDS: Insulin LISPRO 300 UNITS/3 ML VIAL SQ SCH ×4 (01:00→17:29)
[2019-09-08] MEDS: Artificial Tears SOLN 15 ML BOTTLE BOTH EYES SCH ×6 (01:00→22:28)
[2019-09-08] MEDS: DilTIAZem 50 MG in 0.9 % Sodium Chloride 40 ML IVC SCH ×2 (02:33→05:32)
[2019-09-08 05:10] LABS: Hematocrit 38.5 % (35.3-44.9); Hemoglobin 11.9 g/dL (11.5-15.4); Mean Corpuscular HGB Conc 30.9 g/dL (31.6-35.5); Mean Corpuscular Hemoglobin 29.8 pg (28.0-33.3); Mean Corpuscular Volume 96.3 fL (83.0-100.0); Mean Platelet Volume 10.1 fL (9.4-12.4); Platelet Count 223 K/mcL (140-400); Red Cell Distribution Width 14.6 % (11.5-14.5)
[2019-09-08] MEDS: *HR* Heparin 5,000 UNIT/ML VIAL SQ SCH ×3 (05:27→21:10)
[2019-09-08 05:32] LABS: Calcium 8.7 mg/dL (8.6-10.3)
[2019-09-08 07:14] LABS: Albumin 2.8 g/dL (3.5-5.7); Albumin/Globulin Ratio 0.9 (1.1-2.2); Bilirubin,Direct 0.2 mg/dL (0.0-0.2); Bilirubin,Indirect 0.5 mg/dL (0.0-1.0); Bilirubin,Total 0.7 mg/dL (0.3-1.0); Total Protein 5.8 g/dL (6.4-8.9)
[2019-09-08] MEDS: Chlorhexidine Rinse 15 ML MOUTHWASH MM SCH (07:46)
[2019-09-08] MEDS ORDERED: Pantoprazole 40 MG VIAL IVP SCH ×2 (08:00)
[2019-09-08] MEDS ORDERED: Lidocaine/EPI 1:100k 1% 50 ML VIAL ONE (08:38)
[2019-09-08] MEDS ORDERED: Heparin 1,000 UNITS/500 mL 500 ML ONE (08:38)
[2019-09-08] MEDS ORDERED: *HR* FentaNYL (PF) 100 MCG/2 ML VIAL IVP ONE (09:55)
[2019-09-08] MEDS ORDERED: DilTIAZem 50 MG in 0.9 % Sodium Chloride 40 ML IVC SCH (17:00)
[2019-09-08] MEDS: levoFLOXacin 500 MG/100 ML 500 MG/100 ML BAG IVPB SCH (17:16)
[2019-09-08] MEDS ORDERED: Famotidine 20 MG TABLET PO SCH (18:00)
[2019-09-08] MEDS: carvediloL 6.25 MG TABLET PO SCH (21:09)
[2019-09-08] MEDS: Insulin DETEMIR 100 UNIT/ML X5UNITS SQ SCH (21:10)
[2019-09-08] MEDS: Artificial Tears SOLN 15 ML BOTTLE BOTH EYES PRN (21:11)
[2019-09-09] MEDS: Insulin LISPRO 300 UNITS/3 ML VIAL SQ SCH ×5 (00:22→22:48)
[2019-09-09] MEDS: Artificial Tears SOLN 15 ML BOTTLE BOTH EYES SCH ×6 (00:23→22:48)
[2019-09-09 04:10] LABS: Hematocrit 37.5 % (35.3-44.9); Hemoglobin 11.2 g/dL (11.5-15.4); Mean Corpuscular HGB Conc 29.9 g/dL (31.6-35.5); Mean Corpuscular Hemoglobin 29.6 pg (28.0-33.3); Mean Corpuscular Volume 99.2 fL (83.0-100.0); Mean Platelet Volume 9.8 fL (9.4-12.4); Platelet Count 207 K/mcL (140-400); Red Blood Count 3.78 M/mcL (3.82-4.97); Red Cell Distribution Width 14.7 % (11.5-14.5); White Blood Count 15.5 K/mcL (4.3-11.1)
[2019-09-09 04:38] LABS: Calcium 8.6 mg/dL (8.6-10.3)
[2019-09-09] MEDS: *HR* Heparin 5,000 UNIT/ML VIAL SQ SCH ×3 (05:27→22:49)
[2019-09-09] MEDS ORDERED: 0.9 % Sodium Chloride 250 ML IVC PRN (07:38)
[2019-09-09] MEDS ORDERED: 0.9 % Sodium Chloride 1,000 ML PRIME SCH (07:45)
[2019-09-09] MEDS: Aspirin Enteric Coated 81 MG Tablet PO SCH (08:04)
[2019-09-09] MEDS: carvediloL 6.25 MG TABLET PO SCH ×2 (08:38→22:49)
[2019-09-09] MEDS: Artificial Tears SOLN 15 ML BOTTLE BOTH EYES PRN (17:08)
[2019-09-09] MEDS: Famotidine 20 MG TABLET PO SCH (17:10)
[2019-09-09] MEDS: Ondansetron 4 MG/2 ML VIAL IVP PRN (19:30)
[2019-09-09] MEDS: Insulin DETEMIR 100 UNIT/ML X5UNITS SQ SCH (23:07)
[2019-09-10 04:39] LABS: Calcium 8.7 mg/dL (8.6-10.3); Potassium 4.1 mEq/L (3.5-5.1)
[2019-09-10 04:44] LABS: Hemoglobin 11.9 g/dL (11.5-15.4); Mean Corpuscular HGB Conc 29.8 g/dL (31.6-35.5); Mean Corpuscular Hemoglobin 29.6 pg (28.0-33.3); Mean Corpuscular Volume 99.5 fL (83.0-100.0); Mean Platelet Volume 10.2 fL (9.4-12.4); Platelet Count 230 K/mcL (140-400); Red Blood Count 4.02 M/mcL (3.82-4.97); Red Cell Distribution Width 14.7 % (11.5-14.5); White Blood Count 19.2 K/mcL (4.3-11.1)
[2019-09-10] MEDS: *HR* Heparin 5,000 UNIT/ML VIAL SQ SCH ×3 (06:13→22:08)
[2019-09-10] MEDS: Artificial Tears SOLN 15 ML BOTTLE BOTH EYES SCH ×6 (07:24→22:09)
[2019-09-10] MEDS: Insulin LISPRO 300 UNITS/3 ML VIAL SQ SCH ×6 (08:51→22:09)
[2019-09-10] MEDS: Furosemide 40 MG TABLET PO SCH (08:51)
[2019-09-10] MEDS: Aspirin Enteric Coated 81 MG Tablet PO SCH (08:51)
[2019-09-10] MEDS: carvediloL 6.25 MG TABLET PO SCH ×3 (08:52→17:15)
[2019-09-10] MEDS: Famotidine 20 MG TABLET PO SCH (17:15)
[2019-09-10] MEDS: levoFLOXacin 500 MG/100 ML 500 MG/100 ML BAG IVPB SCH (17:16)
[2019-09-10] MEDS: Insulin DETEMIR 100 UNIT/ML X5UNITS SQ SCH (22:09)
[2019-09-11 05:51] LABS: Hematocrit 39.6 % (35.3-44.9); Hemoglobin 11.5 g/dL (11.5-15.4); Mean Corpuscular Hemoglobin 29.8 pg (28.0-33.3); Mean Corpuscular Volume 102.6 fL (83.0-100.0); Mean Platelet Volume 9.8 fL (9.4-12.4); Platelet Count 227 K/mcL (140-400); Red Blood Count 3.86 M/mcL (3.82-4.97); Red Cell Distribution Width 14.5 % (11.5-14.5)
[2019-09-11 06:14] LABS: Calcium 8.6 mg/dL (8.6-10.3); Potassium 4.6 mEq/L (3.5-5.1)
[2019-09-11] MEDS: Artificial Tears SOLN 15 ML BOTTLE BOTH EYES SCH ×5 (07:00→21:58)
[2019-09-11] MEDS: *HR* Heparin 5,000 UNIT/ML VIAL SQ SCH ×3 (07:00→21:57)
[2019-09-11] MEDS: Furosemide 40 MG TABLET PO SCH (08:28)
[2019-09-11] MEDS: Insulin LISPRO 300 UNITS/3 ML VIAL SQ SCH ×7 (08:31→21:58)
[2019-09-11] MEDS: Aspirin Enteric Coated 81 MG Tablet PO SCH (08:32)
[2019-09-11] MEDS: carvediloL 6.25 MG TABLET PO SCH ×2 (08:33→18:42)
[2019-09-11] MEDS: Artificial Tears SOLN 15 ML BOTTLE BOTH EYES PRN (08:33)
[2019-09-11] MEDS ORDERED: 0.9 % Sodium Chloride 250 ML IVC PRN (08:49)
[2019-09-11] MEDS ORDERED: 0.9 % Sodium Chloride 1,000 ML ONE (08:56)
[2019-09-11] MEDS ORDERED: 0.9 % Sodium Chloride 1,000 ML PRIME SCH (11:15)
[2019-09-11] MEDS ORDERED: *HR* Heparin 10,000 UNIT/10 ML VIAL IV PRN (11:19)
[2019-09-11] MEDS: Ondansetron 4 MG/2 ML VIAL IVP PRN (14:28)
[2019-09-11] MEDS ORDERED: *HR* Promethazine 25 MG/ML VIAL IVP ONE (17:11)
[2019-09-11] MEDS: Famotidine 20 MG TABLET PO SCH (18:42)
[2019-09-11] MEDS: Insulin DETEMIR 100 UNIT/ML X5UNITS SQ SCH (21:59)
[2019-09-12] MEDS: Artificial Tears SOLN 15 ML BOTTLE BOTH EYES SCH ×6 (01:32→23:18)
[2019-09-12 04:53] LABS: Hematocrit 41.2 % (35.3-44.9); Mean Corpuscular HGB Conc 29.1 g/dL (31.6-35.5); Mean Corpuscular Hemoglobin 29.5 pg (28.0-33.3); Mean Corpuscular Volume 101.2 fL (83.0-100.0); Mean Platelet Volume 9.7 fL (9.4-12.4); Platelet Count 261 K/mcL (140-400); Red Blood Count 4.07 M/mcL (3.82-4.97); Red Cell Distribution Width 14.6 % (11.5-14.5); White Blood Count 18.2 K/mcL (4.3-11.1)
[2019-09-12 05:10] LABS: Calcium 8.5 mg/dL (8.6-10.3)
[2019-09-12] MEDS: *HR* Heparin 5,000 UNIT/ML VIAL SQ SCH ×3 (06:34→23:21)
[2019-09-12] MEDS: carvediloL 6.25 MG TABLET PO SCH ×2 (08:15→16:50)
[2019-09-12] MEDS: Furosemide 40 MG TABLET PO SCH (08:15)
[2019-09-12] MEDS: Aspirin Enteric Coated 81 MG Tablet PO SCH (08:15)
[2019-09-12] MEDS: Insulin LISPRO 300 UNITS/3 ML VIAL SQ SCH ×7 (08:17→23:17)
[2019-09-12] MEDS ORDERED: Ertapenem 1,000 MG in 0.9 % Sodium Chloride Mini Bag 100 ML IVPB ONE (09:00)
[2019-09-12] MEDS: Famotidine 20 MG TABLET PO SCH (16:50)
[2019-09-12 21:38] LABS: Fluid Source for Triglycerides PLEURAL FLUID
[2019-09-12] MEDS: Insulin DETEMIR 100 UNIT/ML X5UNITS SQ SCH (23:18)
[2019-09-13] MEDS: Artificial Tears SOLN 15 ML BOTTLE BOTH EYES SCH ×5 (04:48→20:30)
[2019-09-13] MEDS: *HR* Heparin 5,000 UNIT/ML VIAL SQ SCH ×3 (06:58→20:28)
[2019-09-13 07:36] LABS: Triglycerides,Body Fluid 33 mg/dL
[2019-09-13 09:17] LABS: Calcium 8.9 mg/dL (8.6-10.3); Potassium 4.1 mEq/L (3.5-5.1)
[2019-09-13 09:21] LABS: Hematocrit 39.7 % (35.3-44.9); Hemoglobin 11.9 g/dL (11.5-15.4); Mean Corpuscular Hemoglobin 30.4 pg (28.0-33.3); Mean Corpuscular Volume 101.3 fL (83.0-100.0); Mean Platelet Volume 9.8 fL (9.4-12.4); Platelet Count 266 K/mcL (140-400); Red Blood Count 3.92 M/mcL (3.82-4.97); Red Cell Distribution Width 14.6 % (11.5-14.5); White Blood Count 15.6 K/mcL (4.3-11.1)
[2019-09-13] MEDS: Insulin LISPRO 300 UNITS/3 ML VIAL SQ SCH ×7 (09:21→20:30)
[2019-09-13] MEDS: Aspirin Enteric Coated 81 MG Tablet PO SCH (09:22)
[2019-09-13] MEDS: Furosemide 40 MG TABLET PO SCH (09:22)
[2019-09-13] MEDS: carvediloL 6.25 MG TABLET PO SCH ×2 (09:22→20:29)
[2019-09-13] MEDS: Ondansetron 4 MG/2 ML VIAL IVP PRN (17:40)
[2019-09-13] MEDS: Insulin DETEMIR 100 UNIT/ML X5UNITS SQ SCH (20:28)
[2019-09-13] MEDS: Famotidine 20 MG TABLET PO SCH (20:29)
[2019-09-14] MEDS: Artificial Tears SOLN 15 ML BOTTLE BOTH EYES SCH ×4 (00:06→12:27)
[2019-09-14] MEDS: Ondansetron 4 MG/2 ML VIAL IVP PRN (00:23)
[2019-09-14 06:04] LABS: Basophils % 0.1 %; Hematocrit 40.8 % (35.3-44.9); Immature Granulocytes % 4.4 % (0-4); Lymphocytes # 1.3 K/mcL (0.6-4.6); Lymphocytes % 9.4 %; Mean Corpuscular HGB Conc 29.4 g/dL (31.6-35.5); Mean Corpuscular Hemoglobin 29.3 pg (28.0-33.3); Mean Corpuscular Volume 99.5 fL (83.0-100.0); Mean Platelet Volume 9.5 fL (9.4-12.4); Monocytes # 1.5 K/mcL (0.0-1.3); Monocytes % 11.1 %; Neutrophils # 10.1 K/mcL (1.6-8.9); Platelet Count 293 K/mcL (140-400); Red Cell Distribution Width 14.5 % (11.5-14.5); White Blood Count 13.4 K/mcL (4.3-11.1)
[2019-09-14] MEDS: *HR* Heparin 5,000 UNIT/ML VIAL SQ SCH ×3 (06:14→19:55)
[2019-09-14 06:20] LABS: Potassium 4.4 mEq/L (3.5-5.1)
[2019-09-14 06:32] LABS: Platelet Estimate Normal (Normal); Toxic Granulation Present (Not Present)
[2019-09-14 06:33] LABS: Large Platelets Present (Not Present)
[2019-09-14] MEDS ORDERED: 0.9 % Sodium Chloride 250 ML IVC PRN (07:04)
[2019-09-14] MEDS: Insulin LISPRO 300 UNITS/3 ML VIAL SQ SCH ×7 (07:58→19:41)
[2019-09-14] MEDS: Furosemide 40 MG TABLET PO SCH (08:00)
[2019-09-14] MEDS: carvediloL 6.25 MG TABLET PO SCH ×2 (08:02→17:35)
[2019-09-14] MEDS: Aspirin Enteric Coated 81 MG Tablet PO SCH (08:02)
[2019-09-14] MEDS ORDERED: Albumin 25% 25gram/100mL 25 GM/100 ML IV.SOLN IVPB PRN (09:51)
[2019-09-14] MEDS: Famotidine 20 MG TABLET PO SCH (17:35)
[2019-09-14] MEDS: Insulin DETEMIR 100 UNIT/ML X5UNITS SQ SCH (19:56)
[2019-09-15] MEDS ORDERED: carvediloL 6.25 MG TABLET PO ONE (01:05)
[2019-09-15 01:41] LABS: Hematocrit 39.3 % (35.3-44.9); Hemoglobin 11.7 g/dL (11.5-15.4); Mean Corpuscular HGB Conc 29.8 g/dL (31.6-35.5); Mean Corpuscular Hemoglobin 29.7 pg (28.0-33.3); Mean Corpuscular Volume 99.7 fL (83.0-100.0); Mean Platelet Volume 9.4 fL (9.4-12.4); Platelet Count 274 K/mcL (140-400); Red Blood Count 3.94 M/mcL (3.82-4.97); Red Cell Distribution Width 14.8 % (11.5-14.5); Segmented Neutrophils % 74.3 %; White Blood Count 12.4 K/mcL (4.3-11.1)
[2019-09-15 01:42] LABS: Basophils # 0.1 K/mcL (0.0-0.2); Basophils % 0.9 %; Immature Granulocytes % 4.2 % (0-4); Lymphocytes # 1.2 K/mcL (0.6-4.6); Monocytes # 1.3 K/mcL (0.0-1.3); Monocytes % 10.6 %; Neutrophils # 9.2 K/mcL (1.6-8.9)
[2019-09-15 02:00] LABS: Calcium 8.3 mg/dL (8.6-10.3); Potassium 3.9 mEq/L (3.5-5.1)
[2019-09-15] MEDS: *HR* Heparin 5,000 UNIT/ML VIAL SQ SCH ×3 (05:29→21:32)
[2019-09-15] MEDS: Insulin LISPRO 300 UNITS/3 ML VIAL SQ SCH ×7 (07:46→21:32)
[2019-09-15] MEDS: Aspirin Enteric Coated 81 MG Tablet PO SCH (07:47)
[2019-09-15] MEDS: carvediloL 6.25 MG TABLET PO SCH ×3 (08:00→17:49)
[2019-09-15] MEDS: Furosemide 40 MG TABLET PO SCH (08:01)
[2019-09-15] MEDS ORDERED: Perflutren Lipid Microsphere 1.3 ML in 0.9 % Sodium Chloride 8.7 ML IVP ONE (16:29)
[2019-09-15] MEDS: Famotidine 20 MG TABLET PO SCH (17:49)
[2019-09-15] MEDS: Insulin DETEMIR 100 UNIT/ML X5UNITS SQ SCH (21:33)
[2019-09-16] MEDS: *HR* Heparin 5,000 UNIT/ML VIAL SQ SCH ×3 (04:49→20:45)
[2019-09-16 05:49] LABS: Basophils # 0.1 K/mcL (0.0-0.2); Basophils % 0.8 %; Hematocrit 38.3 % (35.3-44.9); Hemoglobin 11.2 g/dL (11.5-15.4); Lymphocytes # 1.5 K/mcL (0.6-4.6); Lymphocytes % 12.5 %; Mean Corpuscular HGB Conc 29.2 g/dL (31.6-35.5); Mean Corpuscular Hemoglobin 29.6 pg (28.0-33.3); Mean Corpuscular Volume 101.1 fL (83.0-100.0); Mean Platelet Volume 9.2 fL (9.4-12.4); Monocytes # 1.4 K/mcL (0.0-1.3); Monocytes % 11.8 %; Neutrophils # 8.3 K/mcL (1.6-8.9); Platelet Count 283 K/mcL (140-400); Red Blood Count 3.79 M/mcL (3.82-4.97); Red Cell Distribution Width 14.8 % (11.5-14.5); Segmented Neutrophils % 70.9 %; White Blood Count 11.8 K/mcL (4.3-11.1)
[2019-09-16 06:09] LABS: Calcium 8.4 mg/dL (8.6-10.3); Potassium 4.3 mEq/L (3.5-5.1)
[2019-09-16] MEDS ORDERED: 0.9 % Sodium Chloride 250 ML IVC PRN (07:07)
[2019-09-16] MEDS ORDERED: Albumin 25% 25gram/100mL 25 GM/100 ML IV.SOLN IVPB PRN (07:07)
[2019-09-16] MEDS: Insulin LISPRO 300 UNITS/3 ML VIAL SQ SCH ×5 (09:35→20:45)
[2019-09-16] MEDS: Aspirin Enteric Coated 81 MG Tablet PO SCH (09:35)
[2019-09-16] MEDS: carvediloL 6.25 MG TABLET PO SCH ×2 (09:36→16:51)
[2019-09-16] MEDS: Furosemide 40 MG TABLET PO SCH (09:41)
[2019-09-16] MEDS: Famotidine 20 MG TABLET PO SCH (16:52)
[2019-09-16] MEDS: Insulin DETEMIR 100 UNIT/ML X5UNITS SQ SCH (20:44)
[2019-09-16 22:27] LABS: Fluid Source for Albumin PLEURAL FLUID
[2019-09-17 05:31] LABS: Basophils # 0.1 K/mcL (0.0-0.2); Hematocrit 38.6 % (35.3-44.9); Hemoglobin 11.4 g/dL (11.5-15.4); Immature Granulocytes % 3.2 % (0-4); Lymphocytes # 1.5 K/mcL (0.6-4.6); Lymphocytes % 15.1 %; Mean Corpuscular HGB Conc 29.5 g/dL (31.6-35.5); Mean Corpuscular Hemoglobin 30.2 pg (28.0-33.3); Mean Corpuscular Volume 102.1 fL (83.0-100.0); Mean Platelet Volume 9.4 fL (9.4-12.4); Monocytes # 1.4 K/mcL (0.0-1.3); Monocytes % 14.3 %; Neutrophils # 6.4 K/mcL (1.6-8.9); Platelet Count 249 K/mcL (140-400); Red Blood Count 3.78 M/mcL (3.82-4.97); Red Cell Distribution Width 14.7 % (11.5-14.5); Segmented Neutrophils % 66.4 %; White Blood Count 9.6 K/mcL (4.3-11.1)
[2019-09-17] MEDS: *HR* Heparin 5,000 UNIT/ML VIAL SQ SCH ×2 (05:47→12:45)
[2019-09-17 05:53] LABS: Albumin 2.8 g/dL (3.5-5.7); Calcium 8.4 mg/dL (8.6-10.3); Phosphorous 4.3 mg/dL (2.7-4.5); Potassium 4.3 mEq/L (3.5-5.1)
[2019-09-17] MEDS: Insulin LISPRO 300 UNITS/3 ML VIAL SQ SCH ×4 (07:40→19:51)
[2019-09-17] MEDS: Aspirin Enteric Coated 81 MG Tablet PO SCH (07:50)
[2019-09-17] MEDS: carvediloL 6.25 MG TABLET PO SCH ×2 (07:50→17:29)
[2019-09-17] MEDS: Furosemide 40 MG TABLET PO SCH (07:50)
[2019-09-17] MEDS: Famotidine 20 MG TABLET PO SCH (17:30)
[2019-09-17] MEDS: Insulin DETEMIR 100 UNIT/ML X5UNITS SQ SCH (19:52)
[2019-09-18] MEDS ORDERED: Atropine Sulfate 1% 40 DROP/2 ML BOTTLE SL PRN (04:07)
[2019-09-18] MEDS: Insulin LISPRO 300 UNITS/3 ML VIAL SQ SCH ×2 (07:52→11:33)
[2019-09-18] MEDS: Furosemide 40 MG TABLET PO SCH (07:52)
[2019-09-18] MEDS: carvediloL 6.25 MG TABLET PO SCH (07:52)
[2019-09-18] MEDS: Aspirin Enteric Coated 81 MG Tablet PO SCH (07:53)
[2019-09-18 09:45] VITALS: BP 100/64
== END 2019-09-18 12:29 | disposition hospice, home (50) | DRG 871 ==
LOC: 2ANU → SUATTDRO 14:33 → ICNU 15:21 → 2NNU 09-07 15:36 → 2ANU 09-09 17:33
PROVIDERS: ADMIT Internal Medicine; ATTEND Internal Medicine